=== PATIENT | male | born 1985 | race Caucasian/White ===

== ENCOUNTER 2017-07-29 07:54 | Emergency (ER) | payer SELFPAY ==
[~2017-07-29] VITALS: Ht 180.3 cm; Wt 86.2 kg
[2017-07-29] MEDS ORDERED: IV NS 1000 ML 1,000 ML IV ONE (08:30)
[2017-07-29 08:53] LABS: BASOPHILS % (AUTO) 0.3 % (0.0-2.0); EOSINOPHILS # (AUTO) 0.2 K/uL (0.0-0.7); EOSINOPHILS % (AUTO) 1.4 % (0.0-7.0); HEMATOCRIT 40.8 % (36.7-47.1); HEMOGLOBIN 13.2 g/dL (12.5-16.3); LYMPHOCYTES # (AUTO) 2.4 K/uL (20.0-40.0); LYMPHOCYTES % (AUTO) 19.9 % (20.5-51.5); MEAN CORPUSCULAR HEMOGLOBIN 22.2 uug (23.8-33.4); MEAN CORPUSCULAR HGB CONC 32 g/dL (32.5-36.3); MEAN CORPUSCULAR VOLUME 68.4 fL (73.0-96.2); MONOCYTES # (AUTO) 0.8 K/uL (2.0-10.0); MONOCYTES % (AUTO) 6.5 % (0.0-11.0); NEUTROPHILS # (AUTO) 8.6 K/uL (1.8-8.9); NEUTROPHILS % (AUTO) 71.9 % (38.5-71.5); PLATELET COUNT (AUTO) 190 K/uL (152-348); RED BLOOD CELL COUNT(AUTO) 5.96 MIL/uL (4.06-5.63); WHITE BLOOD COUNT (AUTO) 11.9 K/uL (3.6-10.2)
[2017-07-29 08:59] LABS: CREATININE 0.9 mg/dL (0.6-1.3); POTASSIUM 3.6 mmol/L (3.5-5.1)
[2017-07-29 09:05] LABS: BILIRUBIN,TOTAL 0.7 mg/dL (0.2-1.0); TOTAL PROTEIN, SERUM 7.4 g/dL (6.4-8.2)
--- NOTE | 2017-07-29 09:11 | NUR ---
32 years old male walk-in to er c/o chest discomfort cough since last night lab drawn result in progress, chest x-ray completed ekg done given to Dr Andres montes de oca stable will continue to monitor.
[2017-07-29 09:44] LABS: EOSINOPHILS % (MANUAL) 2 % (0-8); LYMPHOCYTES % (MANUAL) 21 % (20-40); METAMYELOCYTES % 1 % (0-1); MONOCYTES % (MANUAL) 5 % (2-10); NEUTROPHILS % (MANUAL) 71 % (42-75)
[2017-07-29 10:07] VITALS: BP 130/70
--- NOTE | 2017-07-29 10:08 | NUR ---
pt condition improved d/c home with instructions after care reviewed understood left er via self alert, oriented x 4 ambulatory with steady gait.
== END 2017-07-29 10:12 | disposition home or self-care (01) ==
LOC: ER 07:54
DX: R06.00 Dyspnea, unspecified (principal); F17.200 Nicotine dependence, unspecified, uncomplicated
CPT/HCPCS: 36415; 70030-TC; 71045; 85025; 93005; A4663; J7030

== ENCOUNTER 2017-11-17 13:13 | Emergency (ER) | payer SELFPAY ==
[~2017-11-17] VITALS: Ht 180.3 cm; Wt 86.2 kg
--- NOTE | 2017-11-17 13:25 | NUR ---
Attempted to triage pt, pt was not found in ER waiting room.
--- NOTE | 2017-11-17 13:55 | NUR ---
Attempted to triage pt again, was unable to triage pt because pt was arguing with security because they asked him to wait in the ER waiting room as the pt was standing in front of registration desk and refused to move.
--- NOTE | 2017-11-17 14:15 | NUR ---
Patient is AOX4, speaks full sentences comfortably, NAD, pending MD's MSE
--- NOTE | 2017-11-17 14:43 | NUR ---
is still evaluating the patient at this time.
--- NOTE | 2017-11-17 14:56 | NUR ---
Patient discharged to home in stable conditon & brisk steady gait. Written and verbal after care instructions given to patient. Patient verbalizes understanding of instructions.
== END 2017-11-17 14:58 | disposition home or self-care (01) ==
LOC: ER 13:15
DX: J45.909 Unspecified asthma, uncomplicated (principal); F17.200 Nicotine dependence, unspecified, uncomplicated
CPT/HCPCS: A4663